=== PATIENT | male | born 1985 | race Two or more races ===

== ENCOUNTER 2023-07-10 19:08 | Emergency (ER) | payer OTHER ==
[~2023-07-10] VITALS: Ht 188 cm; Wt 79.4 kg
[2023-07-10 20:11] LABS: HEMATOCRIT 39.5 % (39.0-48.0); HEMOGLOBIN 13.4 g/dL (13-16.00); MEAN CELL VOLUME 85.4 fL (80.0-100.00); MEAN CORPUSCULAR HEMOGLOBIN 28.9 pg (27.00-32.0); MEAN CORPUSCULAR HGB CONC 33.9 g/dl (32.0-36.0); PLATELET COUNT 252 K/uL (150-450); RED BLOOD COUNT 4.62 M/uL (4.00-6.00)
[2023-07-10 20:30] LABS: ALBUMIN 4.3 gm/dL (3.4-5.0); BILIRUBIN TOTAL 0.48 mg/dL (0.3-1.2); CALCIUM 9.6 mg/dL (8.5-10.1); CREATININE SERUM 1.2 mg/dL (0.70-1.30); GFR 68.51; GLOBULINA 3.3 G/DL (2.4-3.5); POTASSIUM 4.32 mEq/L (3.5-5.1); TOTAL PROTEIN 7.6 gm/dL (6.4-8.2)
[2023-07-10] MEDS ORDERED: NORFLEX100MG PO (20:58)
== END 2023-07-10 21:05 | disposition home or self-care (01) ==
LOC: ER 19:08
PROVIDERS: General Practice
DX: R07.89 Other chest pain (principal); K51.80 Other ulcerative colitis without complications